=== PATIENT | female | born 1950 | race Caucasian/White ===

== ENCOUNTER 2021-04-27 10:05 | Outpatient (REF) | payer MEDICARE, BC, SELFPAY ==
[2021-04-27 10:29] LABS: COVID-19 Test Negative (Negative); IDNOW Serial# 16C4AD1C
== END 2021-04-27 10:06 | disposition home or self-care (01) ==
LOC: HO.LAB 10:05
PROVIDERS: Visit Provider Internal Medicine
DX: Z20.822 Contact with and (suspected) exposure to COVID-19 (principal)
CPT/HCPCS: 87635; C9803